=== PATIENT | male | born 1940 | race Caucasian/White ===

== ENCOUNTER 2020-09-24 11:39 | Inpatient (IN) | payer MEDICARE ==
[~2020-09-24] VITALS: Ht 180.3 cm; Wt 88.0 kg
[2020-09-24 11:45] VITALS: BP 170/81
[2020-09-24] MEDS ORDERED: SERTRALINE HCL100 MG PO (11:49)
[2020-09-24] MEDS ORDERED: NORVASC10 MG PO (11:49)
[2020-09-24] MEDS ORDERED: GLIPIZIDE 10 MG10 MG PO (11:49)
[2020-09-24] MEDS ORDERED: ZOLOFT50 M1 PO (11:49)
[2020-09-24] MEDS ORDERED: PRILOSEC OTC20 MG PO (11:50)
[2020-09-24] MEDS ORDERED: JANUVIA 50 MG T50 MG PO (11:50)
[2020-09-24] MEDS ORDERED: HYDRALAZINE 2525 MG PO (11:50)
[2020-09-24] MEDS ORDERED: LIPITOR10 MG PO (11:50)
[2020-09-24 12:14] LABS: ABSOLUTE LYMPHOCYTES 0.3 thou/uL (0.8-5.3); ABSOLUTE MONOCYTES 0.2 thou/uL (0.0-1.2); ABSOLUTE NEUTROPHILS 2.3 thou/uL (1.6-8.1); BASOPHILS 0.5 %; EOSINOPHILS 0.1 %; HEMATOCRIT 35.6 % (42.0-52.0); HEMOGLOBIN 12.4 gm/dL (14.0-18.0); LYMPHOCYTES 10.5 %; MCH 31.6 pg (26.0-34.0); MCV 90.4 fL (80.0-100.0); MONOCYTES 8.3 %; MPV 7.1 fl. (7.2-11.1); NUCLEATED RBCS 0 /100WBC; PLATELET COUNT* 147 thou/uL (150-400); POLYS 80.6 %; RBC 3.93 mil/uL (4.50-6.00); RDW-CV 13.9 % (10.5-14.5); WBC 2.8 thou/uL (4.0-11.0)
[2020-09-24 12:22] LABS: CALCIUM 8.1 mg/dL (8.5-10.1); CREATININE 2.2 mg/dL (0.6-1.3); POTASSIUM 3.6 mmol/L (3.5-5.1)
[2020-09-24 12:33] LABS: ALBUMIN 3.6 g/dL (3.4-5.0); TOTAL BILIRUBIN 0.3 mg/dL (<0.1-1.0); TOTAL PROTEIN 6.7 g/dL (6.4-8.2)
--- NOTE | 2020-09-24 13:30 | EKG ---
[place] [address] ELECTROCARDIOGRAM REPORT Name: SUSAN DOBBS Room: [facility]#: [id number] Admission: 09/24/20 Attend Phys: Discharge: Date of : 40 Date of Service: 09/24/20 1153 Report #: [id number] THIS REPORT FOR: //name// [facility] ED Test Date: 2020-09-24 Test Time: 11:53:06 Pat Name: SUSAN DOBBS Department: Room: Gender: Staff Genetic Counselor: : 1940 Requested By: Caren Torres Order Number: [id number] MD: Jorge Abdi Measurements Intervals [place] Rate: 63 P: -21 MA: 128 QRS: -37 QRSD: 94 T: 37 QT: 410 QTc: 420 Interpretive Statements Sinus rhythm Inferior infarct, old Consider anterior infarct No previous ECG available for comparison Electronically Signed On 09-24-2020 13:30:09 CDT by Jorge Abdi [email or web address] <ELECTRONICALLY SIGNED> By: Jorge Abdi MD, [facility] 09/24/20 1330 1153 1153 Jorge Abdi MD, [facility] /EPI
[2020-09-24 15:01] LABS: URINE BILIRUBIN NEGATIVE (Negative); URINE BLOOD 2+ (Negative); URINE COLOR YELLOW; URINE GLUCOSE-RANDOM TRACE (Negative); URINE KETONES NEGATIVE (Negative); URINE LEUKOCYTES-REFLEX TRACE (Negative); URINE NITRITE-REFLEX NEGATIVE (Negative); URINE PROTEIN 3+ (Negative); URINE SPECIFIC GRAVITY 1.025 (1.005-1.030); URINE UROBILINOGEN 0.2 E.U./dl (0.2-1.0)
[2020-09-24 15:06] LABS: URINE CLARITY HAZY
[2020-09-24 15:07] LABS: BACTERIA-REFLEX None Seen /HPF (None Seen); SQUAMOUS 4-10 Moderate /LPF (0-3); URINE RBC 3-10 Few /HPF (0-2); URINE WBC-REFLEX 0-5 Rare /HPF (0-5)
[2020-09-24 15:08] LABS: CASTS None Seen /LPF (None Seen); CRYSTALS None Seen /LPF (None Seen); MUCUS 0-3 Light strn/LPF (None Seen)
--- NOTE | 2020-09-24 17:37 | NUR ---
DAUGHTER IN LAW- VIK [phone] WOULD LIKE TO BE CALLED WHEN HE GETS A ROOM
[2020-09-24 17:39] VITALS: BP 178/86
[2020-09-24 21:39] VITALS: BP 178/78
[2020-09-25 01:10] VITALS: BP 164/77
[2020-09-25 01:20] VITALS: BP 176/75
[2020-09-25 04:39] VITALS: BP 144/63
--- NOTE | 2020-09-25 05:34 | NUR ---
REPORT RECEIVED PER ED RN MANUEL THAT PT WAS BEING ADMITTED FOR ACUTE RENAL FAILURE AND HYPOGLYCEMIA. ED REPORT STATES, "PT FELL OUT OF BED, HX OF MULTIPLE FALLS. BLOOD SUGAR UPON EMS ARRIVAL WAS 41." PT ADMITTED TO COVID UNIT R/T PCR LAB PENDING. RAPID COVID TEST WAS NEGATIVE. PT ADMITTED TO ROOM 117. PT IS A/OX4. PT IS TRACING SR ON SENIOR DATA MODELER. PT IS ON RA. O2 SATS 95-99%. PT REPORTS DRY NPC. PT'S BLOOD GLUCOSE UPON ADMIT WAS 106 MG/DL. PT HAS DEXTROSE 10% INFUSING AT 125ML/HR. PT DENIES C/O PAIN. PT HAS A FEW ABRASIONS ON LEFT EYE BROWLINE, TOP OF HEAD, AND LEFT SIDE OF EYE. SEE HEAD CT FOR IMPRESSION. PT CURRENTLY RESTING IN BED. ASSESSMENTS COMPLETE CHARTED. HOURLY ROUNDS COMPLETED. FALL PRECAUTIONS IN PLACE FOR SAFETY. CALL LIGHT WITHIN REACH. WILL CONT. TO MONITOR.
--- NOTE | 2020-09-25 05:43 | NUR ---
NOTE REVIEWED FROM ED TO CALL PTS DAUGHTER IN LAW VIK WHEN PATIENT ARRIVED TO ROOM. PT ARRIVED TO ROOM 117 AT 0115. RN DID NOT CALL DUE TO THE LATE ARRIVAL OF PATIENT.
[2020-09-25 06:35] LABS: HEMATOCRIT 32.7 % (42.0-52.0); HEMOGLOBIN 11.5 gm/dL (14.0-18.0); MCH 31.4 pg (26.0-34.0); MCHC 35.1 g/dL (28.0-37.0); MCV 89.5 fL (80.0-100.0); MPV 7.5 fl. (7.2-11.1); RBC 3.66 mil/uL (4.50-6.00); RDW-CV 14.2 % (10.5-14.5); WBC 3.3 thou/uL (4.0-11.0)
[2020-09-25 07:02] LABS: CALCIUM 7.6 mg/dL (8.5-10.1); CREATININE 1.7 mg/dL (0.6-1.3); POTASSIUM 3.5 mmol/L (3.5-5.1)
[2020-09-25 07:45] VITALS: BP 172/74
[2020-09-25 15:42] VITALS: BP 172/74
--- NOTE | 2020-09-25 17:46 | NUR ---
PATIENT RESTING IN BED. PATIENT IS ON ROOM AIR. PATIENT DISCHARGE HELD DUE TO RUN OF VTACH WITH LOW MAGNESIUM. ELECTROLYTE REPLACEMENT ORDERED PER DR BLACK. PATIENT HAD COMPLAINTS OF BACK PAIN THIS AFTERNOON, ELIVIATED AFTER SITTING UP IN CHAIR. PATIENT UNHAPPY WITH HELD DISCHARGE. DAUGHTER NOTIFED AND AGREES WITH TREATMENT. PATIENT HAS CALL LIGHT WITHIN REACH. WILL CONTINEU TO MONITOR.
[2020-09-25 20:00] VITALS: BP 131/80
[2020-09-26] VITALS: BP 126/78
[2020-09-26 04:00] VITALS: BP 164/85
[2020-09-26 05:36] LABS: GLYCOHEMOGLOBIN (HGB A1C) 5.9 % (4.8-5.6)
[2020-09-26 07:30] VITALS: BP 155/69
[2020-09-26 10:49] LABS: ABSOLUTE LYMPHOCYTES 0.4 thou/uL (0.8-5.3); ABSOLUTE MONOCYTES 0.2 thou/uL (0.0-1.2); ABSOLUTE NEUTROPHILS 1.5 thou/uL (1.6-8.1); BASOPHILS 1.9 %; EOSINOPHILS 0.3 %; HEMATOCRIT 36.3 % (42.0-52.0); HEMOGLOBIN 12.4 gm/dL (14.0-18.0); LYMPHOCYTES 17.4 %; MCH 31.1 pg (26.0-34.0); MCV 91.3 fL (80.0-100.0); MONOCYTES 8.1 %; MPV 7.5 fl. (7.2-11.1); NUCLEATED RBCS 0 /100WBC; PLATELET COUNT* 131 thou/uL (150-400); POLYS 72.3 %; RBC 3.98 mil/uL (4.50-6.00); RDW-CV 14.2 % (10.5-14.5); WBC 2.1 thou/uL (4.0-11.0)
[2020-09-26 11:09] LABS: ALBUMIN 3.1 g/dL (3.4-5.0); CALCIUM 8.1 mg/dL (8.5-10.1); MAGNESIUM 1.5 mg/dL (1.8-2.4); POTASSIUM 4.1 mmol/L (3.5-5.1); TOTAL BILIRUBIN 0.3 mg/dL (<0.1-1.0)
[2020-09-26 11:57] VITALS: BP 147/78
[2020-09-26 13:20] VITALS: BP 172/74
--- NOTE | 2020-09-26 14:00 | NUR ---
PATIENT DISCHARGED TO HOME. DISCHARGE PAPERS REVIEWED AND SIGNED. IV REMOVED. NO PRESCRIPTIONS. SPOKE WITH PATIENT'S DAUGHTER AND REVIEWED DISCHARGE. PATIENT DENIES ANY FURTHER NEEDS. PATIENT TAKEN BY WHEELCHAIR TO EXIT. LEFT WITH DAUGHTER.
[2020-09-26 15:15] VITALS: BP 172/74
--- NOTE | 2020-09-27 12:58 | CON ---
[address] [address] CONSULTATION Name: SUSAN DOBBS Room: [address] IN [place].#: [id number] Admission: 09/24/20 Attend Phys: Kourtney Alcala MD Discharge: 09/26/20 Date of : 40 Report #: [id number] THIS REPORT FOR: cc: KRISTI - No family physician/PCP FAM - No family physician/PCP Jorge Abdi MD [facility] ~ DATE OF CONSULTATION: 09/26/2020 CARDIOLOGY CONSULTATION HISTORY OF PRESENT ILLNESS: The patient is an 80-year-old white male who I was asked to see in the hospital today after he apparently had a syncopal spell. Unfortunately, the patient has never been here to [place] before. He recently moved from [facility]. He is not very active at this time. He uses a walker. He has no previous history of heart disease. Recently, he has not had much of an appetite. Apparently, he has been falling recently. On the morning of admission, he was found next to his bed after falling out of bed, trying to get up. His blood sugar was only 41. He was given glucose. He has no previous history of heart disease. He denies a history of chest pain, fever, cough, shortness of breath, palpitations, peripheral edema, seizure activity, or bleeding. PAST MEDICAL HISTORY: He has had shoulder surgery, back surgery, cholecystectomy, cataract extraction, hypertension, diabetes, hyperlipidemia. MEDICATIONS: Glipizide, amlodipine, Zoloft, atorvastatin, Prozac, hydralazine, and Januvia. ALLERGIES: He has no known drug allergies. FAMILY HISTORY: Negative for heart disease. SOCIAL HISTORY: He is , lives with his here in [place]. No history of smoking, alcohol abuse. REVIEW OF SYSTEMS: He has no history of stroke, asthma, liver disease. He has chronic kidney disease, saw a newspaper correspondent in the past who placed him on vitamins. No cancer. No chronic skin condition. No psychiatric illness. PHYSICAL EXAMINATION: GENERAL: Revealed an elderly, frail-appearing male who appears in no acute distress. VITAL SIGNS: He had a blood pressure of 150/80, pulse 70, he is afebrile. HEENT: He was anicteric. Conjunctivae pink. Mucous membranes moist. NECK: Veins do not appear distended. No carotid bruits[place] [address] CONSULTATION Name: SUSAN DOBBS Room: [address]#: [id number] Admission: 09/24/20 Attend Phys: Kourtney Alcala MD Discharge: 09/26/20 Date of : 40 Report #: [id number] CHEST: Clear to auscultation. CARDIAC: Regular rate and rhythm without murmur. ABDOMEN: Soft. EXTREMITIES: Had no edema. Dorsalis pedis pulse 3+ bilaterally. SKIN: Cool and dry. NEUROLOGIC: Nonfocal. DIAGNOSTIC IMAGING: His ECG on admission showed a sinus rhythm, left axis, poor R-wave progression, nonspecific ST and T-wave changes. On his workup in the Emergency Room, he had a CT scan of the head without contrast that showed chronic changes, no acute abnormality. His chest x-ray on admission showed no acute abnormality. LABORATORY WORK: Sodium 140, BUN 16, creatinine 1.7, it was 2.2 on admission. His troponins were all 0.06. BNP 567. White blood cell count 3.3, hemoglobin 11.5. On the monitor after admission, the patient appeared to be in sinus rhythm. Yesterday afternoon, he did have a 2-second episode of a narrow complex tachycardia at 150 beats per minute consistent with PAT that resolved spontaneously. IMPRESSION AND RECOMMENDATIONS: 1. Frequent falls. I would rule out Parkinson's. If he has recurrent fainting spells, would consider a residential monitor. 2. Hypertension. The patient is on hydralazine and a calcium mary. 3. Diabetes. 4. Hyperlipidemia. The patient is on a statin drug. 5. Chronic kidney disease. 6. Short run of paroxysmal atrial tachycardia. I would not treat at this time. If the patient complains of palpitations, I would consider a residential monitor. <ELECTRONICALLY SIGNED> By: Jorge Abdi MD, FACC 09/27/20 1258 0842 [id number] Abdi MD, FAC /nt
--- NOTE | 2020-09-28 14:13 | NUR ---
Dtr isra Mobleyr of patient. Requested that Home Health to be orderd. Checked DC summary and HH was not ordered. Called [facility] [phone] [facility] about no HH orders, please follow up with pts PCP and they can get this set up. Call back with any further assistance needed.
== END 2020-09-26 14:00 | disposition home or self-care (01) | DRG 638 ==
LOC: M.ERS 11:39 → M.TBA-ER 13:39 → M.ORTHSURG 09-25 01:38
PROVIDERS: Internal Medicine; Physician Assistant; ADMIT Family Medicine; ATTEND Family Medicine
DX: E11.649 Type 2 diabetes mellitus with hypoglycemia without coma (principal); E44.1 Mild protein-calorie malnutrition; I47.1 Supraventricular tachycardia; I12.9 Hypertensive chronic kidney disease with stage 1 through stage 4 chronic kidney disease, or unspecified chronic kidney disease; E11.22 Type 2 diabetes mellitus with diabetic chronic kidney disease; N17.9 Acute kidney failure, unspecified; N18.30 Chronic kidney disease, stage 3 unspecified; E78.5 Hyperlipidemia, unspecified; K21.9 Gastro-esophageal reflux disease without esophagitis; R74.01 Elevation of levels of liver transaminase levels; T38.3X5A Adverse effect of insulin and oral hypoglycemic [antidiabetic] drugs, initial encounter; Z20.822 Contact with and (suspected) exposure to COVID-19; Y92.89 Other specified places as the place of occurrence of the external cause; Z79.84 Long term (current) use of oral hypoglycemic drugs; Z79.899 Other long term (current) drug therapy; Z98.49 Cataract extraction status, unspecified eye; Z90.49 Acquired absence of other specified parts of digestive tract; Z68.27 Body mass index [BMI] 27.0-27.9, adult